=== PATIENT | female | born 1995 | race African-American/Black ===

== ENCOUNTER 2022-07-02 09:04 | Emergency (ER) | payer SELFPAY ==
[2022-07-02] MEDS ORDERED: Ketorolac Tromethamine 30 MG/ML VIAL ONE (09:51)
[2022-07-02] MEDS ORDERED: Fentanyl 100 MCG/2 ML VIAL ONE ×2 (09:51→15:16)
== END 2022-07-02 16:01 | disposition home or self-care (01) ==
LOC: ERS 09:04
DX: S32.010A Wedge compression fracture of first lumbar vertebra, initial encounter for closed fracture (principal); F17.290 Nicotine dependence, other tobacco product, uncomplicated; W10.9XXA Fall (on) (from) unspecified stairs and steps, initial encounter
CPT/HCPCS: 72120; 72128; 72131; 96374; 96375; 96376; J1885; J3010

== ENCOUNTER 2022-07-23 10:29 | Outpatient (CLI) | payer OTHER | END 2022-07-23 10:30 | disposition home or self-care (01) | LOC: RAD 10:29 | PROVIDERS: ATTEND Physician Assistant Surgical | DX: S32.019D Unspecified fracture of first lumbar vertebra, subsequent encounter for fracture with routine healing (principal) | CPT/HCPCS: 72100 ==

== ENCOUNTER 2022-09-01 13:37 | Outpatient (CLI) | payer OTHER | END 2022-09-01 13:38 | disposition home or self-care (01) | LOC: RAD 13:37 | PROVIDERS: ATTEND Neurological Surgery | DX: S32.010D Wedge compression fracture of first lumbar vertebra, subsequent encounter for fracture with routine healing (principal); R29.890 Loss of height | CPT/HCPCS: 72100 ==